=== PATIENT | male | born 1950 | race Caucasian/White ===

== ENCOUNTER → 2018-12-22 | Outpatient (REF) | LOC: M LAB 13:07 | DX: Z02.89 Encounter for other administrative examinations (principal) ==

== ENCOUNTER → 2018-12-28 | Outpatient (REF) ==
--- NOTE | 2018-12-29 04:54 | REP ---
Clinical: Positive PPD test . Comparison: 11/06/2005 Technique: PA and lateral. Findings: The mediastinum and cardiac silhouette are normal. The lung yu are clear and without acute consolidation, effusion, or pneumothorax. The skeletal structures are intact and normal. Impression: 1. No acute cardiopulmonary process. Electronically Signed by Jewel Griggs MD 12/29/2018 04:46 A
== END ==
LOC: M RAD 11:31
PROVIDERS: ATTEND Nurse Practitioner Adult Health
DX: Z11.1 Encounter for screening for respiratory tuberculosis (principal)

== ENCOUNTER → 2019-08-12 | Outpatient (CLI) | payer BC ==
[2019-08-12 10:47] LABS: BASO % 0.7 % (0.0-1.0); EOS % 0.9 % (0.0-3.0); HEMATOCRIT 42.4 % (42.0-52.0); HEMOGLOBIN 13.8 g/dl (13.5-17.5); LYMPH # 1.5 10^3/uL (1.5-5.0); LYMPH % 34.3 % (24.0-44.0); MEAN CORPUSCULAR HEMOGLOBIN 30.5 pg (27.0-33.0); MEAN CORPUSCULAR HGB CONC 32.5 g/dl (32.0-36.5); MEAN CORPUSCULAR VOLUME 93.6 fl (80.0-96.0); MONO # 0.4 10^3/uL (0.0-0.8); MONO % 7.8 % (0.0-5.0); NEUTROPHILS # 2.5 10^3/uL (1.5-8.5); NEUTROPHILS % 56.1 % (36.0-66.0); PLATELET COUNT, AUTOMATED 195 10^3/uL (150-450); RED BLOOD COUNT 4.53 10^6/uL (4.30-6.10); WHITE BLOOD COUNT 4.5 10^3/uL (4.0-10.0)
[2019-08-12 11:21] LABS: ALT/SGPT 19 U/L (12-78); BILIRUBIN,TOTAL 0.6 MG/DL (0.2-1.0); BLOOD UREA NITROGEN 16 MG/DL (7-18); CALCIUM LEVEL 9.5 MG/DL (8.8-10.2); CARBON DIOXIDE LEVEL 31 MEQ/L (21-32); CHLORIDE LEVEL 105 MEQ/L (98-107); CHOLESTEROL LEVEL 222 MG/DL (<200); CHOLESTEROL RISK RATIO 2.551 (<5); CREATININE FOR GFR 0.92 MG/DL (0.70-1.30); FREE T4 0.92 NG/DL (0.76-1.46); GLOMERULAR FILTRATION RATE > 60.0 (>49); GLUCOSE, FASTING 100 MG/DL (70-100); HDL CHOLESTEROL 87 MG/DL (>40); LDL CHOLESTEROL 121 MG/DL (<100); NON-HDL-C 135 MG/DL; SODIUM LEVEL 138 MEQ/L (136-145); TOTAL PROTEIN 6.8 GM/DL (6.4-8.2); TRIGLYCERIDES LEVEL 71 MG/DL (<150)
== END ==
LOC: M LAB 10:20
PROVIDERS: ATTEND Physician Assistant
DX: Z13.29 Encounter for screening for other suspected endocrine disorder (principal); Z13.220 Encounter for screening for lipoid disorders; R76.11 Nonspecific reaction to tuberculin skin test without active tuberculosis; Z12.5 Encounter for screening for malignant neoplasm of prostate
CPT/HCPCS: 36415; 80053; 80061; 84439; 84443; 85025; G0103

== ENCOUNTER → 2019-08-13 | Outpatient (CLI) | payer BC ==
--- NOTE | 2019-08-13 11:30 | REP ---
LUMBOSACRAL SPINE: Six views of the lumbosacral spine are performed. There is no compression fracture or malalignment. There is normal lumbar lordosis. There is no spondylolysis or spondylolisthesis. There is mild diffuse spurring. There is mild disc space narrowing at L4-5. There is sclerosis and spurring at the posterior facet joints of L4-5 and L5-S1. There is mild curvature toward the right. IMPRESSION: Degenerative changes without evidence of fracture or dislocation. Electronically Signed by Theron Brambila MD 08/13/2019 02:06 P
== END ==
LOC: M LRY 10:33
PROVIDERS: ATTEND Physician Assistant
DX: M54.5 Low back pain (principal); M51.36 Other intervertebral disc degeneration, lumbar region

== ENCOUNTER → 2020-01-08 | Outpatient (REF) | payer BC ==
[2020-03-06 08:32] LABS: HEMATOCRIT 43.3 % (42.0-52.0); HEMOGLOBIN 14.4 g/dl (13.5-17.5); MEAN CORPUSCULAR HEMOGLOBIN 31.1 pg (27.0-33.0); MEAN CORPUSCULAR HGB CONC 33.3 g/dl (32.0-36.5); MEAN CORPUSCULAR VOLUME 93.5 fl (80.0-96.0); PLATELET COUNT, AUTOMATED 248 10^3/uL (150-450); RED BLOOD COUNT 4.63 10^6/uL (4.30-6.10); WHITE BLOOD COUNT 7.3 10^3/uL (4.0-10.0)
[2020-03-06 08:33] LABS: EOSINOPHILS 1 % (0-3); LYMPHOCYTES 21 % (16-44); MONOCYTES 5 % (0-5); NEUTROPHILS 73 % (28-66); PLATELET ESTIMATE NORMAL (NORMAL)
[2020-03-06 20:04] LABS: ALBUMIN 4.2 GM/DL (3.2-5.2); ALT/SGPT 18 U/L (12-78); BILIRUBIN,TOTAL 0.9 MG/DL (0.2-1.0); BLOOD UREA NITROGEN 15 MG/DL (7-18); CALCIUM LEVEL 9.5 MG/DL (8.8-10.2); CARBON DIOXIDE LEVEL 28 MEQ/L (21-32); CHLORIDE LEVEL 105 MEQ/L (98-107); CREATININE FOR GFR 0.86 MG/DL (0.70-1.30); GLOMERULAR FILTRATION RATE > 60.0 (>49); GLUCOSE, FASTING 105 MG/DL (70-100); POTASSIUM SERUM 4.2 MEQ/L (3.5-5.1); SODIUM LEVEL 138 MEQ/L (136-145); TOTAL PROTEIN 7.3 GM/DL (6.4-8.2)
== END ==
LOC: M WUC 12:26
PROVIDERS: ATTEND Physician Assistant
DX: R22.2 Localized swelling, mass and lump, trunk (principal)

== ENCOUNTER → 2020-01-10 | Outpatient (CLI) | payer BC | LOC: M RAD 13:18 | PROVIDERS: ATTEND Physician Assistant | DX: N63.31 Unspecified lump in axillary tail of the right breast (principal) ==

== ENCOUNTER → 2020-02-29 | Outpatient (REF) | payer BC ==
[2020-02-29 17:45] LABS: BLOOD UREA NITROGEN 21 MG/DL (7-18); CARBON DIOXIDE LEVEL 29 MEQ/L (21-32); CHLORIDE LEVEL 108 MEQ/L (98-107); CREATININE FOR GFR 0.89 MG/DL (0.70-1.30); GLOMERULAR FILTRATION RATE > 60.0 (>49); GLUCOSE, FASTING 89 MG/DL (70-100); POTASSIUM SERUM 4.5 MEQ/L (3.5-5.1); SODIUM LEVEL 141 MEQ/L (136-145)
== END ==
LOC: M SFHCPLAZ 15:25
PROVIDERS: ATTEND Physician Assistant
DX: R22.9 Localized swelling, mass and lump, unspecified (principal)

== ENCOUNTER → 2020-03-06 | Outpatient (CLI) | payer BC ==
[~2020-03-06] MED LIST: ISOVUE-370 76% 100ML VIAL As Ordered ONE
--- NOTE | 2020-03-09 15:57 | REP ---
CONSTRAST ENHANCED CHEST CT CLINICAL: Left axillary mass. TECHNIQUE: Axial contrast enhanced images from the thoracic inlet to the upper abdomen with coronal and sagittal reformations using 75 mL Isovue-370 intravenous contrast material. FINDINGS: The left axillary region appears normal and demonstrates small nonspecific lymph nodes. The right axillary region demonstrates a relatively benign appearing lipoma, which measures approximately 4.5 cm in maximal diameter and 9.0 cm in craniocaudal length just lateral to the pectoralis muscles extending to approximately the level of the third rib. No associated significant fat stranding or soft tissue component is appreciated. No adjacent adenopathy identified. The pectoralis muscles along with the adjacent musculature appear normal and vasculature appears normal. The bilateral lung yu are well-aerated and clear. No consolidation, nodule, or mass lesion. No effusion or pneumothorax. Tracheobronchial tree is patent. No mediastinal or hilar adenopathy. Further evaluation of the mediastinal demonstrates a normal thoracic aorta without aneurysm or dissection. No cardiomegaly or pericardial effusion is noted. Atherosclerotic changes are identified. The osseous structures are intact and normal. Limited upper abdomen demonstrates normal bilateral adrenal glands. IMPRESSION: Benign appearing lipoma in the right axillary region measuring roughly 4.5 cm in diameter and 9 cm in craniocaudal length. MTDD
== END ==
LOC: M RAD 15:12
PROVIDERS: ATTEND Surgery
DX: D36.7 Benign neoplasm of other specified sites (principal)
CPT/HCPCS: 71260; Q9967

== ENCOUNTER → 2020-04-22 | Outpatient (CLI) | payer BC | LOC: M LABSMTC 10:19 | PROVIDERS: ATTEND Anesthesiology | DX: Z01.812 Encounter for preprocedural laboratory examination (principal); Z20.828 Contact with and (suspected) exposure to other viral communicable diseases ==

== ENCOUNTER 2020-04-25 08:08 | Day surgery (SDC) | payer BC ==
[~2020-04-25] VITALS: Ht 172.7 cm; Wt 69.4 kg
[~2020-04-25 08:08] MED LIST changes: -ISOVUE-370 76% 100ML VIAL As Ordered ONE; +LR 1,000 ML IV ONE; +ceFAZolin SOD 1 GM in D5W MINI-BAG PLUS 50 ML IV ONE
[2020-04-25] MEDS ORDERED: LIDOCAINE W/EPINEPHRINE 1% 20ML VIAL As Ordered ONE (09:57)
[2020-04-25] MEDS ORDERED: BUPIVACAINE HCL 0.25% 10ML VIAL As Ordered ONE (09:57)
[2020-04-25] MEDS ORDERED: LIDOCAINE 2% 100MG/5ML SDV (FOR ANES.) As Ordered ONE (10:23)
[2020-04-25] MEDS ORDERED: ONDANSETRON 4MG/2ML VIAL As Ordered ONE (10:23)
[2020-04-25] MEDS ORDERED: dexameTHASONE 4 MG/ML 1ML VIAL (J1100 PER 1MG) As Ordered ONE (10:23)
[2020-04-25] MEDS ORDERED: MIDAZOLAM INJ 2MG/2ML VIAL (J2250 PER 1MG) As Ordered ONE (10:23)
[2020-04-25] MEDS ORDERED: KETOROLAC 60MG 2ML VIAL As Ordered ONE (10:23)
[2020-04-25] MEDS ORDERED: fentaNYL 100 MCG/2 ML INJECTION (J3010) As Ordered ONE (10:23)
[2020-04-25] MEDS ORDERED: HYDROMORPHONE HCL 0.5 MG/ 0.5 ML SYRINGE (J1170 PER 1) IV PRN (11:45)
[2020-04-25] MEDS ORDERED: fentaNYL 100 MCG/2 ML INJECTION (J3010) IV PRN (11:45)
[2020-04-25] MEDS ORDERED: LR 1,000 ML IV SCH (11:45)
[2020-04-25] MEDS ORDERED: ONDANSETRON 4MG/2ML VIAL IV PRN (11:45)
[2020-04-25] MEDS ORDERED: NS 1,000 ML IV SCH (11:45)
[2020-04-25] MEDS ORDERED: oxyCODONE 5MG TAB PO PRN (11:45)
[2020-04-25 13:08] VITALS: BP 165/79
== END 2020-04-25 13:08 | disposition home or self-care (01) ==
LOC: M SDC 08:08
PROVIDERS: ATTEND Surgery
DX: D17.9 Benign lipomatous neoplasm, unspecified (principal)
CPT/HCPCS: 11406; 88304; J0690; J1100; J1885; J2250; J2405; J3010

== ENCOUNTER → 2021-04-05 | Outpatient (REF) | LOC: M EMP 12:41 | PROVIDERS: ATTEND Family Medicine | DX: Z20.828 Contact with and (suspected) exposure to other viral communicable diseases (principal) ==